=== PATIENT | female | born 1935 | race Caucasian/White ===

== ENCOUNTER 2018-03-10 08:00 | Outpatient (CLI) | payer MEDICARE, BC | END 2018-03-10 08:01 | disposition home or self-care (01) | LOC: BICRAD 08:00 | PROVIDERS: ATTEND Neurological Surgery | DX: M51.16 Intervertebral disc disorders with radiculopathy, lumbar region (principal); M43.16 Spondylolisthesis, lumbar region | CPT/HCPCS: 72100 ==

== ENCOUNTER 2021-03-21 09:07 | Inpatient (IN) | payer MEDICARE, BC ==
[2021-03-21 09:27] LABS: #Basophils 0.1 thou/uL (0.0-0.2); #Eosinphils 0.2 thou/uL (0.0-0.7); #Monocytes 0.7 thou/uL (0.11-0.59); #Neutrophils 6.1 thou/uL (1.40-6.50); %Eosinophils 2.3 % (0.0-10.0); %Lymphocytes 29.6 % (21.0-51.0); %Monocytes 6.8 % (0.0-10.0); %Neutrophils 60.3 % (42.0-75.0); Hemoglobin 15.7 g/dL (12.0-16.0); Mean Corpuscular HGB CONC 33.5 g/dL (32.0-36.0); Mean Corpuscular Hemoglobin 31.6 pg (27.0-31.0); Mean Corpuscular Volume 94.2 fL (78.0-98.0); Platelet Count 308 thou/uL (130-400); RBC Distribution Width 12.8 % (11.5-14.5); Red Blood Cell (RBC) Count 4.97 mill/uL (4.20-5.40); White Blood Cell (WBC) Count 10.2 thou/uL (4.8-10.8)
[2021-03-21 09:40] LABS: ALT (SGPT) 15 U/L (8-55); AST (SGOT) 20 U/L (5-34); Albumin 4.2 g/dL (3.4-4.8); Alkaline Phosphatase 98 U/L (40-110); Anion Gap 17 mmol/L (10-20); BUN (Urea Nitrogen) 17 mg/dL (9.8-20.1); Bilirubin, Total 0.5 mg/dL (0.2-1.2); Calc. Creatinine Clearance 0 mL/min (70-130); Calcium 9.3 mg/dL (7.8-10.44); Carbon Dioxide 20 mmol/L (23-31); Chloride 104 mmol/L (98-107); Globulin 3.2 g/dL (2.4-3.5); Glucose 139 mg/dL (83-110); Potassium 3.9 mmol/L (3.5-5.1); Protein, Total 7.4 g/dL (5.8-8.1); Sodium 137 mmol/L (136-145)
[2021-03-21 09:45] LABS: PTT 30.1 sec (22.9-36.1); Prothrombin Time 13.4 sec (12.0-14.7)
[2021-03-21 10:28] LABS: Bilirubin Negative (Negative); Blood, Urine Negative (Negative); Clarity Clear (Clear); Glucose, Urine (Dipstick) Normal (Negative); Ketone, Urine Negative (Negative); Leukocyte 500 Leu/uL (Negative); Nitrite Negative (Negative); Protein, Urine (Dipstick) Negative (Neg-Trace); RBC/HPF 0-3 HPF (0-3); Specific Gravity, Urine 1.016 (1.002-1.036); Squamous Epithelial 0-3 HPF (0-3); Urobilinogen Normal mg/dL (Less than 2); pH, Urine 6.5 (5.0-9.0)
[2021-03-21 10:29] LABS: Bacteria/HPF Rare-Few HPF (None Seen)
[2021-03-21] MEDS ORDERED: Ondansetron PF 4 MG/2 ML Vial ONE (12:05)
[2021-03-21] MEDS ORDERED: Aspirin 325 MG TAB ONE (12:05)
[2021-03-21] MEDS ORDERED: cefTRIAXone\\ROCEPHIN 1 GM VIAL ONE (12:05)
[2021-03-21 12:37] LABS: Lactic Acid 2.1 mmol/L (0.5-2.2)
[2021-03-21 13:08] LABS: Troponin I Less than 0.010 ng/mL (< 0.028)
[2021-03-21 15:59] LABS: Troponin I Less than 0.010 ng/mL (< 0.028)
[2021-03-21 16:03] LABS: SARS-CoV-2 NAA Rapid Test Not Detected (NotDetected)
[2021-03-21 18:00] VITALS: BMI 26.4
[2021-03-21] MEDS: Atorvastatin Calcium 40 MG TAB PO SCH (20:14)
[2021-03-22 05:17] LABS: Hemoglobin A1c 5.5 % (4.0-6.0)
[2021-03-22 05:37] LABS: Cardiac Risk 4.2 (Less than 4.5)
[2021-03-22] MEDS: Enoxaparin Sodium 40 MG/0.4 ML SYRINGE SC SCH (09:36)
[2021-03-22] MEDS: Aspirin 325 mg Enteric Coated Tablet PO SCH (09:36)
[2021-03-22] MEDS: cefTRIAXone\\ROCEPHIN 1 GM in Sodium Chloride 0.9% 100 ML IVPB SCH (13:19)
[2021-03-22] MEDS: Atorvastatin Calcium 40 MG TAB PO SCH (20:48)
[2021-03-22] MEDS ORDERED: Melatonin 3 MG TAB PO PRN (21:20)
[2021-03-23] MEDS: Aspirin 325 mg Enteric Coated Tablet PO SCH (08:25)
[2021-03-23] MEDS: Enoxaparin Sodium 40 MG/0.4 ML SYRINGE SC SCH (08:25)
[2021-03-23] MEDS ORDERED: Iopamidol-370 76% 500 ML 1 ML ONE (09:58)
[2021-03-23] MEDS: cefTRIAXone\\ROCEPHIN 1 GM in Sodium Chloride 0.9% 100 ML IVPB SCH (13:26)
[2021-03-23 15:50] VITALS: TEMP 97.6
[2021-03-23 16:11] VITALS: BP 140/64
[2021-03-23] MEDS ORDERED: Scopolamine 1.5 mg/72 hour Patch TD SCH (18:00)
[2021-03-23] MEDS: Atorvastatin Calcium 40 MG TAB PO SCH (19:57)
== END 2021-03-23 23:10 | DRG 65 ==
LOC: ERS 09:07 → ERHOLD 12:05 → 2SE 17:12 → OBSVTOIN 03-22 13:09
PROVIDERS: ADMIT Internal Medicine; ATTEND Internal Medicine
DX: I63.9 Cerebral infarction, unspecified (principal); G81.94 Hemiplegia, unspecified affecting left nondominant side; N39.0 Urinary tract infection, site not specified; Z20.822 Contact with and (suspected) exposure to COVID-19; R47.81 Slurred speech; R47.1 Dysarthria and anarthria; R29.810 Facial weakness; I10 Essential (primary) hypertension; R29.703 NIHSS score 3; Z90.710 Acquired absence of both cervix and uterus; Z79.899 Other long term (current) drug therapy
CPT/HCPCS: 36415; 36416; 70450; 70496; 70498; 70551; 71045; 80053; 80061; 81003; 81015; 83036; 83605; 84484; 85025; 85610; 85730; 87040; 87086; 93005; 93306; 93880; 96372; G0378; J0696; J1650; J2405; J3490; U0002; U0005